=== PATIENT | female | born 1980 | race Caucasian/White ===

== ENCOUNTER 2024-09-04 11:37 | Emergency (ER) | payer OTHER, SELFPAY ==
[2024-09-04 11:51] VITALS: BP 100/70; PULSE 74; TEMP 36.8; O2SAT 99; BMI 20.6
[2024-09-04 13:56] LABS: Glucose Urine UA NEGATIVE (NEGATIVE)
[2024-09-04 13:57] LABS: HCG Qualitative Urine* NEGATIVE (NEGATIVE)
[2024-09-04 14:19] LABS: Cast Seen? NONE SEEN #/LPF (NONE SEEN); Crystals Seen? None Seen #/HPF (None Seen); Urine Culture Indicated YES-FRMC
[2024-09-04] MEDS: CEFTRIAXONE 500 MG, LIDOCAINE HCL/PF 1 ML IM (15:38)
[2024-09-04 15:41] VITALS: BP 110/76; PULSE 68; O2SAT 99
--- NOTE | 2024-09-04 17:38 | ED.GENADUL1 ---
HPI HPI - General Adult General Chief complaint: Urogenital-Female Stated complaint: ABNORMAL VAGINAL DISCHARGE Time Seen by Provider: 09/04/24 13:47 Source: patient Mode of arrival: walk-in Limitations: no limitations History of Present Illness HPI narrative: 44-year-old female to the emergency department chief complaint of vaginal discharge. Patient reports she is sexually active. She is concerned about STD. She denies . She has had a foul-smelling greenish thin discharge for the last 3 weeks. Related Data Previous Rx's �Medication �Instructions �Recorded doxycycline monohydrate 100 mg 100 mg PO BID 7 days #14 caps 09/04/24 capsule metronidazole 500 mg tablet 500 mg PO BID 7 days #14 tabs 09/04/24 Allergies Allergy/AdvReac Type Severity Reaction Status Date / Time No Known Drug Allergies Allergy Verified 09/04/24 11:51 Review of Systems ROS Status of ROS 10 or more systems reviewed and unremarkable except as noted in history and below PFSH PFSH Social History Little interest or pleasure in doing things: not at all Feeling down, depressed, or hopeless: not at all Exam Narrative Exam Narrative: VITALS: I have reviewed the triage vital signs. GENERAL: Well developed, well appearing adult in no acute distress. NEURO: Alert and oriented. Moves all extremities. Face is symmetric and expressive. EYES: PERRL. No scleral icterus or conjunctival injection. No discharge. HENT: Normocephalic, atraumatic. Hearing is grossly intact. Nares grossly patent and without discharge. Mucous membranes moist. NECK: No JVD. Patient moves neck without restriction. GI/: Abdomen is soft and non-tender. Normoactive bowel sounds. EXTREMITIES: Symmetric muscle bulk. No joint swelling. No clubbing, cyanosis, or deformity. SKIN: Warm and dry. Normal turgor. No rash or lesions appreciated. PSYCH: Mood, affect, and interaction is appropriate to the setting. Constitutional Vital Signs, click to edit/add: Last Vital Signs Temp 98.2 F 09/04/24 11:51 Pulse 68 09/04/24 15:41 Resp 18 09/04/24 15:41 BP 110/76 09/04/24 15:41 Pulse Ox 99 09/04/24 15:41 O2 Del Method Room Air 09/04/24 15:41 Course Vital Signs Vital signs: Vital Signs Temperature 98.2 F 09/04/24 11:51 Pulse Rate 74 09/04/24 11:51 Respiratory Rate 16 09/04/24 11:51 Blood Pressure 100/70 09/04/24 11:51 Pulse Oximetry 99 09/04/24 11:51 Oxygen Delivery Method Room Air 09/04/24 11:51 Temperature 98.2 F 09/04/24 11:51 Pulse Rate 68 09/04/24 15:41 Respiratory Rate 18 09/04/24 15:41 Blood Pressure 110/76 09/04/24 15:41 Pulse Oximetry 99 09/04/24 15:41 Oxygen Delivery Method Room Air 09/04/24 15:41 Medical Decision Making MDM Narrative Medical decision making narrative: 44-year-old female to the emergency department chief complaint of vaginal discharge. Vital stable, the patient is afebrile. Abdominal examination is benign. She declines pelvic and would like to self swab. UA is concerning for urinary tract infection. Wet prep has clue cells as well as moderate bacteria. She has trichomonas. test is negative She is treated with Rocephin, doxycycline course sent to her pharmacy. Greg. Referral to [employer]. Medical Records Medical records reviewed: Yes I reviewed the patient's medical records Lab Data Lab results reviewed: Yes I reviewed the patient's lab results Labs: Lab Results 09/04/24 Range/Units 13:36 Urine Color Lt yellow (YELLOW) Urine Clarity Cloudy A (CLEAR) Urine pH 6.0 (5.0-9.0) Ur Specific [place] >=1.030 A (1.005-1.025) Urine Protein 100 A (NEG/TRACE) mg/dL Urine Glucose (UA) Negative (NEGATIVE) mg/dL Urine Ketones Negative (NEGATIVE) mg/dL Urine Occult Blood Moderate A (NEGATIVE) Urine Nitrite Negative (NEGATIVE) Urine Bilirubin Negative (NEGATIVE) Urine Urobilinogen 0.2 (0.2-1.0) EU/dL Ur Leukocyte Esterase Moderate A (NEGATIVE) Urine RBC 10-20 A (0-2) #/HPF Urine WBC >100 A (NONE SEEN) #/HPF Ur Squamous Epith Cells Moderate A (NONE/RARE) #/LPF Urine Crystals None seen (None Seen) #/HPF Urine Bacteria Moderate A (NONE SEEN) #/HPF Urine Casts None seen (NONE SEEN) #/LPF Urine Mucus Trace A (NONE SEEN) Urine Trichomonas Seen A (NONE SEEN) Ur Culture Indicated? Yes-[facility] [place] U[place] HCG, Qual Negative (NEGATIVE) Discharge Plan Discharge Chief Complaint: Urogenital-Female Clinical Impression: Urinary tract infection, Bacterial vaginosis, Trichomoniasis, Encounter for assessment of STD exposure Patient Disposition: Home, Self-Care Time of Disposition Decision: 15:22 Condition: Good Mode of Transportation: Private Vehicle Prescriptions / Home Meds: New metronidazole 500 mg tablet 500 mg PO BID 7 Days Qty: 14 0RF doxycycline monohydrate 100 mg capsule 100 mg PO BID 7 Days Qty: 14 0RF Print Language: Macedonian Instructions: Bacterial Vaginosis (ED), Sexually Transmitted Diseases (ED), Trichomoniasis (ED) Referrals: Romel Aguillon DO [Physician, [employer]] - 1 week Physician,Non-Staff, MD [Primary Care Provider] - 1 week Discharge Date/Time: 09/04/24 15:41
== END 2024-09-04 15:41 | disposition home or self-care (01) ==
PROVIDERS: Emergency Provider Student in an Organized Health Care Education/Training Program
DX: N39.0 Urinary tract infection, site not specified (principal); A59.01 Trichomonal vulvovaginitis; Z20.2 Contact with and (suspected) exposure to infections with a predominantly sexual mode of transmission
CPT/HCPCS: 81001; 84703; 87086; 87088; 87210; 87491; 87591; 87661; 96372; 99285; J0696